=== PATIENT | female | born 1970 | race American Indian/Alaskan Native ===

== ENCOUNTER 2018-11-08 13:00 | Emergency (ER) | payer SELFPAY ==
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
[2018-11-08 13:45] VITALS: BP 138/77
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
== END 2018-11-08 23:15 | disposition left against medical advice (07) ==
LOC: ED 13:00
DX: M79.641 Pain in right hand (principal); Z53.21 Procedure and treatment not carried out due to patient leaving prior to being seen by health care provider